=== PATIENT | female | born 1980 | race Caucasian/White ===

== ENCOUNTER 2017-03-14 16:18 | Outpatient (CLI) | payer MEDICAID ==
[~2017-03-14] VITALS: Ht 160 cm; Wt 92.0 kg
[2017-03-14 16:54] VITALS: BP 119/72; PULSE 121; RESP 20
[2017-03-14] MEDS ORDERED: PRENAT PO (16:56)
--- NOTE | 2017-03-14 18:36 | CONS ---
Date/Time of Note Date/Time of Note DATE: 03/14/17 TIME: 18:30 Consultation Date/Type/Reason Admit Date/Time March 14, 2017 Triage consult Reason for Consultation This patient is 36 years old 4 para 2 1 with normal spontaneous vaginal delivery . She is now with breech presentation, and is scheduled for section. Her estimated date of confinement is March 27, 2070 which makes her 38 weeks and 1 day, She came to the Ob triage complaining of cough. chills and abdominal pain since last night. On examination she is a well-developed well-nourished patient with normal vital signs ;heart pressure 119/72 pulse rate 121 respiration 20 temperature was only 98.0 but we will recheck the temperature. heart tone was around 150. Contraction are rare and we have observed only 2 in 20 minutes. Her pain level is 6/10 On pelvic examination her cervix is closed long and firm Constitutional: other (Mostly body pain including abdomen and back pain), No chills, No diaphoresis, No disoriented, No febrile, No improved, No no complaints, No poor po, No requiring IVF, No requiring O2 Eyes: No discharge, No no complaints, No other, No pain, No redness, No visual change ENT: No bleeding, No congestion, No discharge, No dysphagia, No no complaints, No other, No pain, No sore throat Respiratory: No cough, No no complaints, No other, No pain, No pleuritic pain, No shortness of breath, No sputum, No wheezing Gastrointestinal: other (As I mentioned her cervix is closed and long), No blood, No constipation, No decreased appetite, No diarrhea, No flatus, No nausea, No no complaints, No pain, No passing stool, No vomiting Genitourinary: No bleeding, No discharge, No dysuria, No flank pain, No hematuria, No no complaints, No other Musculoskeletal: No back pain, No bone/joint pain, No neck pain, No no complaints, No other, No restricted range of motion, No swelling Skin: No bruising, No erythema, No laceration, No no complaints, No other, No pruritis, No rash, No skin lesions Neurologic: No confusion, No dizziness, No focal-weakness, No headache, No no complaints, No other, No seizure, No syncope Endocrine: No dry skin, No no complaints, No other, No polydypsia, No polyuria , No temp intolerance Additional Comments Most likely this patient is developing cold symptoms. We will do a biophysical profile if that is normal she will be discharged or if she wants will send her to down to emergency room for further workup Social History Smoking Status: Never smoker Exam/Review of Systems Vital Signs Vitals Vital Signs Date Time Temp Pulse Resp B/P Pulse Ox O2 Delivery O2 Flow Rate FiO2 03/14/17 16:54 98.0 121 20 119/72 Room Air JESSE LOPEZ MD Mar 14, 2017 18:36
[2017-03-14] MEDS ORDERED: ACETAMINOPHEN 325 MG TAB PO STA (18:38)
--- NOTE | 2017-03-14 18:57 | RADRPT ---
PROCEDURE: US OB biophysical profile. CLINICAL INDICATION: decreased movements, pelvic pain TECHNIQUE: Multiple sonographic images of the pelvis were obtained. The images were reviewed on a PACS workstation. COMPARISON: No prior studies are available for comparison. FINDINGS: There is a single viable intrauterine gestation. Cardiac activity is present with 156 beats per min [place]. There is a breech presentation. The placenta is anterior. There is no evidence of placental abruption. There is a normal amount of amniotic fluid with an LANIE = 9.5 cm. Biophysical profile: movement 2/2 tone 2/2. breathing 2/2 LANIE 2/2 Total 06/27 RPTAT: AA . IMPRESSION: Normal biophysical profile. . .Rajiv Durham MD, Date Time Electronically viewed and signed by .Rajiv Durham MD, MD on 03/14/2017 18:56 .S/
--- NOTE | 2017-03-14 20:40 | TRIAGE ---
OB Triage Datetime Report Generated by CPN: 03/14/2017 20:39 Datetime: 03/14/2017 20:30 Stage of : OB Triage Datetime: 03/14/2017 20:15 Stage of : OB Triage Datetime: 03/14/2017 18:59 Labor Evaluation Frequency: x2 Monitor Mode: External Duration (sec)2399: 90 Quality: Mild Pattern: Normal: <= 5 Contractions in 10 Minutes Resting Tone [place]: Relaxed Heart Rate FHR Baseline Rate: 150 Monitor Mode: External US FHR Baseline Changes: No Baseline Change Variability: Minimal - Undetectable to <=5 bpm Accelerations: 15X15 Decelerations: None Comments: PERIODS OF MODERATE VARIABILITY Datetime: 03/14/2017 18:16 Temperature Route: Axillary Datetime: 03/14/2017 18:15 Temperature Route: Oral Datetime: 03/14/2017 17:41 Labor Evaluation Frequency: 0 Monitor Mode: External Pattern: Normal: <= 5 Contractions in 10 Minutes Resting Tone [place]: Relaxed Heart Rate FHR Baseline Rate: 145 Monitor Mode: External US FHR Baseline Changes: No Baseline Change Variability: Moderate 6-25 bpm Accelerations: 15X15 Decelerations: None Datetime: 03/14/2017 17:06 Labor Evaluation Frequency: x3 Monitor Mode: External Duration (sec)2399: 50-90 Quality: Mild Pattern: Normal: <= 5 Contractions in 10 Minutes Resting Tone [place]: Relaxed Heart Rate FHR Baseline Rate: 150 Monitor Mode: External US FHR Baseline Changes: No Baseline Change Variability: Moderate 6-25 bpm Accelerations: 15X15 Decelerations: None Datetime: 03/14/2017 17:04 Vaginal Exam Dilatation (cms): 0.0 Effacement (%): 0 Station: -1 Exam By: CKUNIYOSHI Cervix, Position: Posterior Presentation 'A': Unable to Assess Datetime: 03/14/2017 16:58 Time of Arrival: 03/14/2017 16:15 EGA: 38.1 Arrived By: Wheelchair Arrived From: Emergency Dept Chief Complaint: COUGH, CHILLS, ABDOMINAL PAIN - BILATERAL, SHARP, WHEN COUGHING Movement: Present Contractions: Denies/Absent Rupture of Membranes: Denies Vaginal Bleeding: None Vaginal Discharge: Present Patient Complaints: Fever; Cough; Other Time Provider Notified: 03/14/2017 17:53 Provider Notified: DR. LOPEZ Initial Plan: EFM x2, SVE, BPP Datetime: 03/14/2017 16:50 Stage of : OB Triage Assessment Type: Triage Maternal Assessment Level of Consciousness: Fully Conscious Headache: Denies Blurred Vision: No Respiratory Effort: Unlabored; Regular Rhythm; Equal Expansion Breath Sounds, Left: Clear and Equal Breath Sounds, Right: Clear and Equal Nausea/Vomiting: Denies RUQ Epigastric Pain: Denies Lower Extremities Edema: Bilateral Lower Extremities Degree: 1+ Upper Extremities Edema: None Degree: None Facial Edema: None Temperature Route: Oral Fall Risk Assessment History of Falling: (0) No Secondary Diagnosis: (0) No Ambulatory Aid: (0) Bedrest/Nurse Assist IV Therapy: (0) No Gait: (0) Normal/Bedrest/Immobile Mental Status: (0) Oriented to Own Ability Fall Score: 0 Fall Risk Score Definition: No Risk: No action required Pain Assessment Pain Scale: 6 Pain Presence: Intermittent (Annotations: WHEN COUGHING) Pain Type: Sharp Pain Location: Abdomen (Annotations: LOWER LEFT, LOWER RIGHT)
[2017-03-14] MEDS ORDERED: ACET325T33 PO (22:38)
== END 2017-03-14 20:30 | disposition home or self-care (01) ==
LOC: OBT 16:18 → L-D 16:18 → OBT 20:30
PROVIDERS: ATTEND Obstetrics & Gynecology
DX: O26.893 Other specified pregnancy related conditions, third trimester (principal); R10.9 Unspecified abdominal pain; R05 Cough; Z3A.38 38 weeks gestation of pregnancy
CPT/HCPCS: 76818; Z7500; Z7610; G0463

== ENCOUNTER 2017-03-14 20:42 | Emergency (ER) | payer MEDICAID ==
[~2017-03-14] VITALS: Ht 160 cm; Wt 91.5 kg
[~2017-03-14 20:42] MED LIST: PRENAT PO
[2017-03-14 20:45] VITALS: Ht 160 cm; Wt 91.5 kg
[2017-03-14] MEDS ORDERED: ACET325T33 PO (22:38)
[2017-03-14 22:55] VITALS: BP 110/61; PULSE 94; RESP 16; TEMP 98.5
--- NOTE | 2017-03-15 00:11 | ERD ---
ER Documentation Chief Complaint Date/Time DATE: 03/15/17 TIME: 00:09 Chief Complaint 38 wk , cleared fr L&D, cold symptoms x 2 days, runny nose, fever HPI 36-year-old female patient who is currently 38 weeks is a A1 and was cleared by labor and delivery upstairs here at [facility] presents the ED complaining of cough and rhinorrhea that started 2 days ago. Reports that her younger daughter also has similar symptoms. States that her last menses was on June 22, 2016. Reports that her SAMPLE MOUNTER is . Denies any vaginal bleeding, vaginal discharge, pelvic pain, nausea, vomiting, chest pain, shortness of breath. ROS All systems reviewed and are negative except as per history of present illness. Medications Home Meds Active Scripts Acetaminophen* (Tylenol*) 325 Mg Tablet, 2 TAB PO Q8 Y for PAIN AND OR ELEVATED TEMP, #20 TAB Prov:JOSE WESTON PA-C 03/14/17 Reported Medications Multivit/Min/Fol Ac/Iron/Pren* ( S*) 1 Tab Tab, 1 TAB PO DAILY, TAB 03/14/17 Allergies Allergies: Coded Allergies: No Known Allergy (Unverified , 03/14/17) PMhx/Soc Medical and Surgical Hx: pt denies Medical Hx, pt denies Surgical Hx Hx Alcohol Use: No Hx Substance Use: No Hx Tobacco Use: No Smoking Status: Never smoker Physical Exam Vitals Vital Signs Date Time Temp Pulse Resp B/P Pulse Ox O2 Delivery O2 Flow Rate FiO2 03/14/17 22:55 98.5 94 16 110/61 99 Room Air 03/14/17 20:45 97.8 111 20 123/59 100 Physical Exam Const: [id number], well-nourished. In no acute distress. Head: Atraumatic, normocephalic Eyes: Normal Conjunctiva without injection. No purulent discharge. PERRL. EOMI ENT: Normal external ear. Ear canal without erythema. Tympanic membrane pearly oliver without effusion or bulging. Nasal canal clear with normal turbinates. Moist oropharynx without tonsillar exudates. Non-erythematous pharynx. Uvula midline. No drooling. No trismus. Neck: Full range of motion. No meningismus. No cervical lymphadenopathy. Resp: Clear to auscultation bilaterally. No wheezing, rhonchi, rales, or crackles. No accessory muscle use. No retractions. Cardio: Regular rate and rhythm. No murmurs, rubs or gallops. Abd: Soft, non tender, non distended. Normal bowel sounds. No palpable masses. No rebound tenderness. No guarding. Skin: No petechiae or rashes Back: No midline tenderness. No CVA tenderness. Ext: No cyanosis, or edema. Neur: Awake and alert. Psych: Normal Mood and Affect Procedures/MDM This is a 36-year-old female patient with no significant past medical history is a A1 and is currently 38 weeks presents to the ED complaining of a dry cough and rhinorrhea. Patient is afebrile and nontoxic-appearing. Cough medications were discussed with patient at this time. Stated that they were all category C medications and since she is very close to having a C- section next week, she should follow-up with her SAMPLE MOUNTER for further evaluation treatment. Patient is not in respiratory distress. Patient speaking in full sentences. Patient's oxygen saturation is 100%. This patient presents to the ED with symptoms consistent with a viral acute upper respiratory infection. Patient is afebrile and has normal vital signs. Patient's physical exam include lungs which were clear to auscultation and a normal pulse oximetry. There is a low suspicion for pneumonia, pneumothorax, mononucleosis, pulmonary embolism, epiglottitis, otitis media, otitis externa, viral/strep pharyngitis, sinusitis, peritonsillar abscess, mastoiditis, retropharyngeal abscess, meningitis, sepsis, acute abdomen or other emergent conditions. Discharge medications: Tylenol Patient was instructed to return to the ED for any new or worsening symptoms. They should otherwise follow up with the primary care provider within 1-2 days. The patient's questions were answered at the time of discharge. Patient understood and agreed with discharge management. Departure Diagnosis: Primary Impression: Upper respiratory infection URI type: unspecified URI Qualified Code: J06.9 - Upper respiratory tract infection, unspecified type Condition: Stable Patient Instructions: Preventing Common Respiratory Infections, Uri, Viral, No Abx (Adult) Referrals: COMMUNITY CLINICS YOU HAVE RECEIVED A MEDICAL SCREENING EXAM AND THE RESULTS INDICATE THAT YOU DO NOT HAVE A CONDITION THAT REQUIRES URGENT TREATMENT IN THE EMERGENCY DEPARTMENT. FURTHER EVALUATION AND TREATMENT OF YOUR CONDITION CAN WAIT UNTIL YOU ARE SEEN IN YOUR DOCTORS OFFICE WITHIN THE NEXT 1-2 DAYS. IT IS YOUR RESPONSIBILITY TO MAKE AN APPOINTMENT FOR FOLOW-UP CARE. IF YOU HAVE A PRIMARY DOCTOR --you should call your primary doctor and schedule an appointment IF YOU DO NOT HAVE A PRIMARY DOCTOR YOU CAN CALL OUR PHYSICIAN REFERRAL HOTLINE AT IF YOU CAN NOT AFFORD TO SEE A PHYSICIAN YOU CAN CHOSE FROM THE FOLLOWING [facility] [address] [facility] [address] [facility] [address] [facility] [address] [facility] [address] [facility] [facility] [address] [facility] [facility] YOU HAVE RECEIVED A MEDICAL SCREENING EXAM AND THE RESULTS INDICATE THAT YOU DO NOT HAVE A CONDITION THAT REQUIRES URGENT TREATMENT IN THE EMERGENCY DEPARTMENT. FURTHER EVALUATION AND TREATMENT OF YOUR CONDITION CAN WAIT UNTIL YOU ARE SEEN IN YOUR DOCTORS OFFICE WITHIN THE NEXT 1-2 DAYS. IT IS YOUR RESPONSIBILITY TO MAKE AN APPOINTMENT FOR FOLOW-UP CARE. IF YOU HAVE A PRIMARY DOCTOR --you should call your primary doctor and schedule and appointment IF YOU DO NOT HAVE A PRIMARY DOCTOR YOU CAN CALL OUR PHYSICIAN REFERRAL HOTLINE AT . IF YOU CAN NOT AFFORD TO SEE A PHYSICIAN YOU CAN CHOSE FROM THE FOLLOWING [facility] [address] [place] [address] [facility] [address] [place] [address] [facility] [address] [place] [address] [facility] Additional Instructions: Visite a dutta macy fried para un EXAMEN.Regrese a estas instalaciones si no se mejora gera esperbamos o gera le dijimos. JOSE WESTON PA-C Mar 15, 2017 00:11
== END 2017-03-14 22:56 | disposition home or self-care (01) ==
LOC: FTE 20:42
DX: O99.513 Diseases of the respiratory system complicating pregnancy, third trimester (principal); J06.9 Acute upper respiratory infection, unspecified; Z3A.38 38 weeks gestation of pregnancy

== ENCOUNTER 2017-03-22 10:51 | Inpatient (IN) | payer MEDICAID ==
[~2017-03-22] VITALS: Ht 162.6 cm; Wt 91.5 kg
[~2017-03-22 10:51] MED LIST changes: +ACET325T33 PO
[2017-03-22 11:52] VITALS: Ht 162.6 cm; Wt 91.5 kg
[2017-03-22 11:55] VITALS: BP 118/73; PULSE 69
[2017-03-22] MEDS ORDERED: METHYLERGONOVINE 0.2 MG INJ IM PRN ×2 (12:00→15:00)
[2017-03-22] MEDS ORDERED: OXYTOCIN 30 UNITS/LR 500 ML IV SCH ×2 (12:00→16:33)
[2017-03-22] MEDS ORDERED: MISOPROSTOL 200 MCG TAB PR PRN ×2 (12:00→15:00)
[2017-03-22] MEDS ORDERED: CARBOPROST 250 MCG INJ IM PRN ×2 (12:00→15:00)
[2017-03-22] MEDS ORDERED: CEFAZOLIN 2 GM/50 ML (PMX) 50 ML IV SCH (12:00)
[2017-03-22] MEDS ORDERED: OXYTOCIN 30 UNITS/LR 500 ML IV PRN ×2 (12:00→15:00)
[2017-03-22 12:09] LABS: ADD SCAN DIFF NO
[2017-03-22] MEDS: LACTATED RINGER'S 1,000 ML IV SCH ×3 (12:17→14:45)
[2017-03-22 12:21] LABS: BASOPHILS % 0.2 % (0.0-2.0); EOSINOPHILS # 0.1 10^3/ul (0.0-0.5); EOSINOPHILS % 0.9 % (0.0-7.0); HEMATOCRIT 40.6 % (37.0-47.0); LYMPHOCYTES # 2.2 10^3/ul (0.8-2.9); LYMPHOCYTES % 38.9 % (15.0-51.0); MEAN CORPUSCULAR HEMOGLOBIN 31.4 pg (29.0-33.0); MEAN CORPUSCULAR HGB CONC 34.5 g/dl (32.0-37.0); MEAN PLATELET VOLUME 10.8 fl (7.4-10.4); MONOCYTE # 0.5 10^3/ul (0.3-0.9); MONOCYTES % 8.1 % (0.0-11.0); NEUTROPHIL # 2.9 10^3/ul (1.6-7.5); NEUTROPHILS % 51.4 % (39.0-77.0); PLATELET COUNT 236 10^3/UL (140-415); RED BLOOD COUNT 4.46 10^6/ul (4.20-5.40); RED CELL DISTRIBUTION WIDTH 12.9 % (11.5-14.5); WHITE BLOOD COUNT 5.7 10^3/ul (4.8-10.8)
[2017-03-22] MEDS ORDERED: FENTAnyl 50 MCG/ML VIAL ONE (12:21)
[2017-03-22] MEDS ORDERED: morphine SULFATE/PF (10 MG/10 ML) INJ ONE (12:21)
[2017-03-22 12:29] LABS: INR 0.97; PROTIME 12.9 Sec (12.2-14.2)
[2017-03-22 12:30] LABS: PARTIAL THROMBOPLASTIN TIME 30.2 Sec (25.0-35.0)
[2017-03-22] MEDS ORDERED: FAMOTIDINE 20 MG INJ IV ONE (12:30)
[2017-03-22] MEDS ORDERED: CITRIC ACID/NA CITRATE 30 ML CUP PO ONE (12:30)
[2017-03-22] MEDS ORDERED: PHENYLephrine (100 MCG/ML) 5ML SYG ONE (13:23)
[2017-03-22] MEDS ORDERED: ADENOSINE 2 ML ONE (13:23)
--- NOTE | 2017-03-22 13:23 | PREOPHP ---
DATE OF ADMISSION: 03/22/2017 HISTORY OF PRESENT ILLNESS: Ms. Harding is a 36-year-old 4, para 2, EDC 03/29/2017 intrauterine at 39 weeks gestational age, presented to L and D complaining of contractions . An ultrasound was performed, cephalic was in breech presentation. After explaining the risks, bene fits and alternatives, the patient desires an elective delivery. Her care took pl [facility]ann[facility] at [facility]. PAST MEDICAL HISTORY: None. MEDICATIONS: vitamins. PAST SURGICAL HISTORY: None. OBSTETRIC HISTORY: x2 vaginal deliveries, x1 missed AB. GYNECOLOGIC HISTORY: 14, regular 3 to 4 days. Denies any sexually transmitted diseases. Sexually active with 1 partner. SOCIAL HISTORY: Denies any smoking, drugs or alcohol. FAMILY HISTORY: None. PHYSICAL EXAMINATION: HEENT: Within normal. LUNGS: CTA bilateral. CARDIOVASCULAR: S1, S2, regular rhythm. ABDOMEN: Gravid, nontender. Negative CVA bilateral. EXTREMITIES: Negative edema. No calf tenderness. PELVIC: Vaginal exam 1 to 2, 50% effaced, -3 station. Limited ultrasound performed: systolic and breech presentation. heart tracing category 1. Tocometer regular contractions. ASSESSMENT: A 36-year-old 4, para 2, intrauterine at 39 weeks gestational age in labor, malpresentation, desires surgical sterilization. PLAN: Consent for a primary with bilateral tubal ligation. Risks, benefits and alternati ves explained. All questions were answered. Dictated By: SHAHAB ALSTON/CLAY Conf#: [id number] DID#: [id number]
[2017-03-22] MEDS ORDERED: OXYCODONE/ACETAMINOPHEN (5/325) TAB PO PRN ×2 (15:00)
[2017-03-22] MEDS ORDERED: NALOXONE (0.4 MG/ML) INJ IV PRN (15:00)
[2017-03-22] MEDS ORDERED: ZOLPIDEM 5 MG TAB PO PRN (15:00)
[2017-03-22] MEDS ORDERED: DIPHENHYDRAMINE 50 MG INJ IV PRN (15:00)
[2017-03-22] MEDS ORDERED: ONDANSETRON 4 MG INJ IV PRN (15:00)
[2017-03-22] MEDS ORDERED: LANOLIN 7 GM TUBE TOP PRN (15:00)
[2017-03-22] MEDS ORDERED: HYDROmorphONE 1 MG/ML SYG IV PRN ×2 (15:00)
[2017-03-22] MEDS: OXYTOCIN 30 UNITS/LR 500 ML IV SCH ×2 (16:38→20:32)
[2017-03-22] MEDS: IBUPROFEN 600 MG TAB PO SCH (18:00)
[2017-03-22 18:15] VITALS: BP 120/67; PULSE 83; RESP 18
[2017-03-22 18:21] VITALS: BP 120/61; PULSE 74; RESP 18
[2017-03-22 19:30] VITALS: BP 130/64; PULSE 76; RESP 19
[2017-03-22] MEDS: KETOROLAC 30 MG INJ IV PRN (19:42)
[2017-03-22] MEDS: SENNA/DOCUSATE NA (8.6MG/50MG) TAB PO SCH (20:40)
[2017-03-23] VITALS: BP 126/66; RESP 19
[2017-03-23] MEDS: LACTATED RINGER'S 1,000 ML IV SCH ×2 (00:34→06:43)
[2017-03-23 04:00] VITALS: BP 112/60; PULSE 87; RESP 19
[2017-03-23] MEDS: IBUPROFEN 600 MG TAB PO SCH ×5 (06:00→23:38)
[2017-03-23 08:00] VITALS: BP 116/62; PULSE 73; RESP 18
[2017-03-23 08:39] LABS: ADD SCAN DIFF NO
--- NOTE | 2017-03-23 08:43 | QN ---
Documentation Comment pod 1 patient seen and evaluated no complaints quiñonez clear vs stable afebrile abdomen soft nt no distention extremity no edema no calf tenderness a/ sp cd with btl pod 1 stable afebrile p/ f/u cbc encourage ambulation SHAHAB PETERSON MD March 23, 2017 08:43
[2017-03-23 09:04] LABS: BASOPHILS % 0.1 % (0.0-2.0); EOSINOPHILS % 0.2 % (0.0-7.0); HEMATOCRIT 34.9 % (37.0-47.0); LYMPHOCYTES # 1.7 10^3/ul (0.8-2.9); MEAN CORPUSCULAR HEMOGLOBIN 31.3 pg (29.0-33.0); MEAN CORPUSCULAR HGB CONC 34.4 g/dl (32.0-37.0); MEAN CORPUSCULAR VOLUME 91.1 fl (82.0-101.0); MEAN PLATELET VOLUME 10.7 fl (7.4-10.4); MONOCYTE # 0.7 10^3/ul (0.3-0.9); MONOCYTES % 6.5 % (0.0-11.0); NEUTROPHIL # 8.6 10^3/ul (1.6-7.5); NEUTROPHILS % 77.7 % (39.0-77.0); PLATELET COUNT 226 10^3/UL (140-415); RED BLOOD COUNT 3.83 10^6/ul (4.20-5.40); RED CELL DISTRIBUTION WIDTH 13.1 % (11.5-14.5); WHITE BLOOD COUNT 11.1 10^3/ul (4.8-10.8)
[2017-03-23] MEDS: SENNA/DOCUSATE NA (8.6MG/50MG) TAB PO SCH ×2 (09:24→21:55)
[2017-03-23] MEDS: KETOROLAC 30 MG INJ IV PRN (09:29)
[2017-03-23 12:00] VITALS: BP 119/77; PULSE 81; RESP 18
--- NOTE | 2017-03-23 12:35 | OPR ---
DATE OF OPERATION: PREOPERATIVE DIAGNOSIS: A 36-year-old 4, para 2, intrauterine at 39 weeks gestati onal age in labor, malpresentation, desires surgical sterilization. POSTOPERATIVE DIAGNOSIS: A 36-year-old 4, para 2, intrauterine at 39 weeks gestat ional age in labor, malpresentation, desires surgical sterilization. PROCEDURE PERFORMED: Primary low transverse section via Pfannenstiel incision with bilater al tubal ligation, [place] method. SURGEON: Du Dowling MD. ACCOUNT RESOLUTION ANALYST: Veronique Light MD ANESTHESIA: Spinal. COMPLICATIONS: None. ESTIMATED BLOOD LOSS: 500 mL. FINDINGS: A viable female, 9 and 9, respectively at 1 and 5 minutes, weight 7 pounds 15 ounce s. PATHOLOGY: Portion of the right and left fallopian tubes. DESCRIPTION OF PROCEDURE: After explaining the risks, benefits and alternatives, the patient consen ts, signed in chart, the patient was taken to the operating room where spinal anesthesia was found t o be adequate. She was then prepared and draped in a normal sterile fashion in dorsal supine positi on with a leftward tilt. A Pfannenstiel skin incision was then made with a scalpel and carried to t he underlying layer of fascia. The fascia was incised in the midline and the incision was extended laterally with Lloyd scissors. The superior aspect of the fascial incision was grasped with curved c lamps, elevated and the underlying rectus muscles dissected off bluntly. Attention was then turned to the inferior aspect of the incision which in similar fashion was grasped, tented up with curved c lamps and the rectus muscles dissected off bluntly. The rectus muscles were in midline, p eritoneum identified, tented up and entered sharply with Metzenbaum scissors. The peritoneal incisi on was extended superiorly with good visualization of the bladder. The bladder blade was then inser robin and the vesicouterine peritoneum identified, grasped with pickups and entered sharply with Metramandeep keys scissors. This incision was extended laterally and the bladder flap created digitally. The b ladder blade was then reinserted. The lower uterine segment was incised in transverse fashion with a scalpel. The uterine incision was extended laterally. The bladder blade was removed and the infa nt's buttocks was delivered to the level of the . The right arm was flipped across the chest a nd delivered. The left arm was flipped cross the chest and delivered. The vertex was deliver ed without any complication. The mouth was suctioned and cord clamped and cut/ . The wa s handed off to awaiting help desk engineer. The placenta was then removed. The uterus exteriorized and cleared of all clots and debris. The uterine incision was repaired with 1-0 chromic in a running lo cked fashion. A second layer of same suture was used for imbrication, obtaining excellent hemostasi s. At this point, a 3 cm segment of the left tube was ligated with a free tie of plain gut and excised. Good hemostasis was noted. Similarly, the right fallopian tube was ligated, a 3 cm segment excise d in a similar fashion. Excellent hemostasis was noted. The uterus was returned to the abdomen. T he gutters were cleared of all clots and The peritoneum and rectus abdominis muscles were reapproxim ated with 3-0 Vicryl in an interrupted fashion. The fascia was reapproximated with 0 Vicryl in runn ing fashion. The subcutaneous tissue was reapproximated with 2-0 plain gut in a running fashion. T he skin was closed with dianelys. The patient tolerated the procedure well. Sponge, lap, needle cou nts correct x2. The patient was taken to recovery room in stable condition. Dictated By: DU ALSTON/CLAY Conf#: [id number] DID#: [id number]
[2017-03-23 15:49] VITALS: BP 118/71; PULSE 73; RESP 18
[2017-03-23 20:00] VITALS: BP 119/70; PULSE 77; RESP 20
[2017-03-24 04:46] VITALS: BP 138/88; PULSE 100; RESP 19
[2017-03-24] MEDS: IBUPROFEN 600 MG TAB PO SCH ×4 (06:32→23:39)
[2017-03-24 08:00] VITALS: BP 119/75; PULSE 71; RESP 18
[2017-03-24] MEDS: SENNA/DOCUSATE NA (8.6MG/50MG) TAB PO SCH ×2 (09:00→21:30)
--- NOTE | 2017-03-24 09:58 | PN ---
Date/Time of Note Date/Time of Note DATE: 03/24/17 TIME: 09:57 OB Subjective Subjective Subjective PASSSING FLATUS URINATION OK OB Objective Objective Objective VSS AAFEBRILE ABDOMEN SOFT WOUND DRY LOCHIA MIN CALF NEG FOR TENDERNESS OB Assessment/Plan Other Assessment: STABLE S/P C/S #2 NILAM TURNER MD March 24, 2017 09:58
[2017-03-24 16:00] VITALS: BP 120/76; PULSE 77; RESP 18
--- NOTE | 2017-03-24 16:42 | QN ---
Documentation Comment POD#1 is stable afebrile tolerates diet No VB +flatus +voids Vs stable Gen NAD Abd soft NT ND Incision intact Genitalia No blood at perinium -->Ambulation ALLEN RAYMOND M.D. March 24, 2017 16:42
[2017-03-24 20:30] VITALS: BP 114/79; PULSE 84; RESP 18
[2017-03-25 04:30] VITALS: BP 106/61; PULSE 68; RESP 18
[2017-03-25] MEDS: IBUPROFEN 600 MG TAB PO SCH ×2 (05:34→13:50)
[2017-03-25 08:00] VITALS: BP 139/72; PULSE 66; RESP 19
[2017-03-25] MEDS: SENNA/DOCUSATE NA (8.6MG/50MG) TAB PO SCH (08:36)
--- NOTE | 2017-03-25 12:55 | PD.PPDC ---
OBIEE ARCHITECT Discharge Instruction Diagnosis Final Diagnosis: s/p primary cesection Condition Patient Condition: Stable Diet Diet: Resume Regular Diet Activity/Restrictions Activity: March Shower Restrictions: No Exercising No Lifting Minimize Stair-climbing No Sexual Activity Nothing in the Vagina No Gillespie No Tampons, douche Follow-up Follow-up with Physician: 2, Day/Days Return to clinic for PEARL TECHNICIAN Instructions: Fever greater than 101 Chills Worsening abdominal pain Excessive Vaginal Bleeding More than 2 pads per hour Unable to tolerate diet OB Instructions: Breast Tenderness Depression Blurried Vision Headache Surgical Instructions: Incisional Drainage Incisional Redness NILAM TURNER MD March 25, 2017 12:54
== END 2017-03-25 18:00 | disposition home or self-care (01) | DRG 766 ==
LOC: L-D 10:51 → PP1 18:05
PROVIDERS: ADMIT Obstetrics & Gynecology; ATTEND Obstetrics & Gynecology
PROC: 0UL70ZZ Occlusion of Bilateral Fallopian Tubes, Open Approach (ICD-10-PCS; 2017-03-22)
PROC: 10D00Z1 Extraction of Products of Conception, Low, Open Approach (ICD-10-PCS; principal; 2017-03-22 12:30)
DX: O32.9XX0 Maternal care for malpresentation of fetus, unspecified, not applicable or unspecified (principal); Z30.2 Encounter for sterilization; Z3A.39 39 weeks gestation of pregnancy; Z37.0 Single live birth
CPT/HCPCS: 76815; 85025; 85610; 85730; 86592; 86850; 86900; 86901; 87340; 88302; 94760; 99464; J0153; J1885; J2274; J2370; J2590; J3010; J7120